=== PATIENT | male | born 1990 | race Caucasian/White ===

== ENCOUNTER → 2021-08-25 15:40 | Outpatient (BNVA) | payer BC, SELFPAY | PROVIDERS: PCP Family Medicine; Visit Provider Family Medicine | DX: I10 Essential (primary) hypertension (principal); K04.7 Periapical abscess without sinus | CPT/HCPCS: 80053; 85025; 85651; 86140 ==

== ENCOUNTER → 2021-09-23 14:09 | Outpatient (BNVA) | payer BC, SELFPAY | PROVIDERS: PCP Family Medicine; Visit Provider Family Medicine | DX: I10 Essential (primary) hypertension (principal) | CPT/HCPCS: 80048 ==